=== PATIENT | female | born 1940 | race African-American/Black ===

== ENCOUNTER 2022-03-10 13:34 | Emergency (ER) | payer OTHER ==
[~2022-03-10] VITALS: Ht 165.1 cm; Wt 72.0 kg
[2022-03-10] MEDS ORDERED: LIDOCAINE HCL/EPINEPHRINE 1%-EPI 1:100,000 20 ML VIAL INFIL ONE (16:45)
[2022-03-10] MEDS ORDERED: TETANUS, DIPHTHERIA, PERTUSSIS VAC/PF 0.5ML (>10YR OLD) IM ONE (16:45)
[2022-03-10] MEDS ORDERED: BACITRACIN ZINC OINT UDPKT TOP ONE (16:45)
[2022-03-10] MEDS ORDERED: LIDOCAINE HCL/EPINEPHRINE 1%-EPI 1:100,000 30 ML VIAL INFIL SCH (16:45)
[2022-03-10 17:14] LABS: BASOPHILS % 0.4 % (0.0-2.0); EOSINOPHILS % 1.2 % (0.0-5.0); HEMATOCRIT. 45.1 % (36.0-48.0); HEMOGLOBIN. 15.3 g/dL (12.0-16.0); LYMPHOCYTES % 32.7 % (20.0-50.0); MEAN CORPUSCULAR HEMOGLOBIN 31.5 pg (28.0-32.0); MEAN CORPUSCULAR VOLUME 92.9 fL (81.0-99.0); MEAN PLATELET VOLUME 7.7 fl (7.4-10.4); MONOCYTES % 8.5 % (2.0-8.0); NEUTROPHILS % 57.2 % (40.0-76.0); PLATELET 338 x1000/uL (130-400); RED BLOOD CELL COUNT 4.85 mill/uL (4.2-5.4); RED CELL DISTRIBUTION WIDTH 14.9 % (11.6-14.6)
[2022-03-10 17:22] LABS: CHLORIDE 105 mEq/L (98-107)
[2022-03-10 19:13] VITALS: BP 155/78
== END 2022-03-10 19:35 | disposition home or self-care (01) ==
LOC: ER 13:34
DX: S01.81XA Laceration without foreign body of other part of head, initial encounter (principal); I10 Essential (primary) hypertension; W01.10XA Fall on same level from slipping, tripping and stumbling with subsequent striking against unspecified object, initial encounter; Y93.89 Activity, other specified; Y92.018 Other place in single-family (private) house as the place of occurrence of the external cause
CPT/HCPCS: 12002; 36415; 71045; 80053; 84484; 85025; 90471; 90715; 99285; J3490